=== PATIENT | female | born 2000 | race Caucasian/White ===

== ENCOUNTER 2020-09-25 15:55 | Observation (INO) | payer OTHER ==
[~2020-09-25] VITALS: Ht 160 cm; Wt 67.1 kg
[2020-09-25] MEDS ORDERED: PREN-118 PO (16:15)
== END 2020-09-25 17:30 | disposition home or self-care (01) ==
LOC: L&D 15:55 → 8 EST A/PP 16:14
PROVIDERS: ADMIT Obstetrics & Gynecology; ATTEND Obstetrics & Gynecology
DX: O26.892 Other specified pregnancy related conditions, second trimester (principal); R10.9 Unspecified abdominal pain; Z3A.24 24 weeks gestation of pregnancy
CPT/HCPCS: 59025; G0378; 99281